=== PATIENT | male | born 1950 ===

== ENCOUNTER → 2017-02-13 | Outpatient (CLI) | payer MEDICARE, OTHER ==
[~2017-02-13] MED LIST: AMLODIPINE BESY10 MG ORAL; ASPIR 8181 MG ORAL; CRESTOR10 M2 ORAL; DIOVAN80 MG ORAL; HYDRALAZINE HCL50 MG ORAL; IBUPROFEN400 MG ORAL; METFORMIN HCL500 M1 ORAL; MIRTAZAPINE15 M3 ORAL; NORCO 5-325 TA1 EACH ORAL
[2017-02-13 15:21] VITALS: BP 128/66
--- NOTE | 2017-02-13 22:09 | Consultation ---
DATE OF CONSULTATION: 02/13/2017 CONSULTING PHYSICIAN: Isidro Scott M.D. CHIEF COMPLAINT: Weight loss. HISTORY OF PRESENT ILLNESS: This is a very pleasant 66-year-old male, who was referred to us for evaluation of rapid weight loss. Apparently, the patient lost 60 pounds in a matter of months. The patient denies any nausea or vomiting. Denies abdominal pain. Denies dysphagia. Denies any odynophagia. No melena. No hematochezia. No recent history of colonoscopy or endoscopy. PAST MEDICAL HISTORY: 1. History of weakness. 2. History of diabetes. 3. Hypertension. 4. Constipation. 5. Brain aneurysm. 6. History of cerebrovascular accident. PAST SURGICAL HISTORY: Two CVS for brain aneurysm. MEDICATIONS: Please see medication reconciliation list. ALLERGIES: No known drug allergies. SOCIAL HISTORY: The patient denies any tobacco, alcohol, or drug abuse. FAMILY HISTORY: No family history of GI malignancies. PHYSICAL EXAMINATION: VITAL SIGNS: Temperature is 98.1 degrees, blood pressure is 122/66, pulse is 90, respirations 20, and weight is 168. Height is 5 feet 5 inches. HEENT: Normocephalic and atraumatic. Sclerae anicteric. NECK: Supple. No evidence of lymphadenopathy. CARDIOVASCULAR: Regular rate and rhythm, plus S1 and S2. LUNGS: Decreased breath sounds bilaterally on supine exam. ABDOMEN: Soft and nontender. No rebound. No guarding. EXTREMITIES: No cyanosis, clubbing, or edema. LABORATORY DATA: Not available. ASSESSMENT: The patient is a 66-year-old male with rapid weight loss without any prior history of endoscopy and colonoscopy. PLAN: We will do endoscopy and colonoscopy next week. The patient was given the instruction in the presence of his son, who speaks fully [place]. He was given the prep instruction and a prescription. Plan is to do endoscopy and colonoscopy next Sunday. If that is completely negative, we will consider doing CT. We are also going to do a laboratory work on the day of procedure including CEA, CA 19-9, and a thyroid panel. I want to thank, Dr. Alejadnro Cooper, for this kind referral. Isidro Raymond Scott DR: EMANUEL JOB#: [id number] CC: Alejandro Cooper M.D.; Fax#: [phone]
== END | disposition home or self-care (01) ==
LOC: PAN 11:05
DX: R63.4 Abnormal weight loss (principal); E11.9 Type 2 diabetes mellitus without complications; I10 Essential (primary) hypertension; Z86.73 Personal history of transient ischemic attack (TIA), and cerebral infarction without residual deficits
CPT/HCPCS: 99201

== ENCOUNTER → 2017-02-23 | Day surgery (SDC) | payer MEDICARE, OTHER ==
[2017-02-23] VITALS (7 sets, daily range): BP systolic 95–137; BP diastolic 52–87
[~2017-02-23] VITALS: Ht 152.4 cm; Wt 68.0 kg
[~2017-02-23] MED LIST changes: +Alfentanil 2ml Inj ONE; +Atropine Inj 1mg/10ml Syr IV PRN; +DiphenhydrAMINE 50mg/ml Inj IVP PRN; +Hydromorphone 0.5mg/0.5ml inj IVP PRN; +Ketorolac 30mg Inj IV PRN; +Ketorolac 60mg Inj IV PRN; +LORazepam Inj 2mg/ml 1ml IV PRN; +LR 1000ml 1,000 ML IVLG SCH; +Labetalol 5mg/ml 20ml vial IV PRN; +Lidocaine 1% MPF 10mg/ml 5ml ONE; +Meperidine 25mg/ml Inj IV PRN; +Metoclopramide 10mg/2ml Inj IVP PRN; +Midazolam 2mg/2ml Inj IVP PRN; +Norco 5mg/325mg tab ORAL PRN; +Norco 7.5mg/325mg tab ORAL PRN; +Oxycodone/Acetaminophen 5-325 ORAL PRN; +Propofol 10mg/ml 20ml IV ONE; +fentaNYL 100 mcg/2 mL IV PRN
--- NOTE | 2017-02-23 10:28 | Anethesia Preoperative Eval ---
Anesthesia Pre-op PMH/ROS General Date of Evaluation: Feb 23, 2017 Time of Evaluation: 10:59 Anesthesiologist: Hali ASA Score: ASA 3 Mallampati Score Class I : Soft palate, uvula, fauces, pillars visible Class II: Soft palate, uvula, fauces visible Class III: Soft palate, base of uvula visible Class IV: Only hard plate visible Mallampati Classification: Class III Surgeon: Tyler Diagnosis: Abd Pain Surgical Procedure: EGD/Colonoscopy Anesthesia History: none Family History: no anesthesia problems Allergies: Coded Allergies: No Known Allergies (Unverified , 09/07/16) Medications: see eMAR Past Medical History Cardiovascular: Reports: HTN Neurologic/Psychiatric: Reports: CVA - Aneurysm Endocrine: Reports: DM PSxH Narrative: Crainiotomy X3 Anesthesia Pre-op Phys. Exam Physician Exam Last Vital Signs Date Time Temp Pulse Resp B/P Pulse Ox O2 Delivery O2 Flow Rate FiO2 02/23/17 09:22 97.8 66 18 137/73 97 Room Air Constitutional: NAD Neurologic: CN 2-12 intact Cardiovascular: RRR Respiratory: CTA Gastrointestinal: S/NT/ND Airway Exam Mallampati Score: Class III MO: limited ROM: limited Teeth: missing, intact Anesthesia Pre-op A/P Risk Assessment & Plan Assessment: ASA 3 Plan: GA Status Change Before Surgery: Jeancarlos Javier MD Feb 23, 2017 10:28
--- NOTE | 2017-02-23 10:29 | Immediate Post-Op Evaluation ---
Immediate Post-Op Evalulation Immediate Post-Op Evalulation Procedure: EGD/Colonscopy Date of Evaluation: Feb 23, 2017 Time of Evaluation: 12:07 IV Fluids: 500 LR Blood Products: 0 Estimated Blood Loss: 1 Urinary Output: 0 Blood Pressure Systolic: 95 Blood Pressure Diastolic: 62 Pulse Rate: 76 Respiratory Rate: 16 O2 Sat by Pulse Oximetry: 100 Temperature (Fahrenheit): 97.2 Pain Score (1-10): 1 Nausea: No Vomiting: No Complications 0 Patient Status: awake, reacts, patent, none Hydration Status: adequate Jeancarlos Lal MD Feb 23, 2017 10:29
--- NOTE | 2017-02-23 10:30 | 48 Hour Post Anesthesia Eval ---
Post Anesthesia Evaluation Procedure: EGD/Colonscopy Date of Evaluation: Feb 23, 2017 Time of Evaluation: 14:11 Blood Pressure Systolic: 142 0: 74 Pulse Rate: 67 Respiratory Rate: 18 Temperature (Fahrenheit): 98.2 O2 Sat by Pulse Oximetry: 97 Airway: patent Nausea: No Vomiting: No Pain Intensity: 1 Hydration Status: adequate Cardiopulmonary Status: Stable Mental Status/LOC: patient returned to baseline Follow-up Care/Observations: 0 Post-Anesthesia Complications: 0 Follow-up care needed: ready to discharge Jeancarlos Lal MD Feb 23, 2017 10:30
--- NOTE | 2017-02-23 10:51 | Pre-Procedure Note/Attestation ---
Pre-Procedure Note/Attestation Complete Prior to Procedure Planned Procedure: not applicable Procedure Narrative: esophagogastroduodenoscopy colon Indications for Procedure Pre-Operative Diagnosis: wt loss Attestation I attest that I discussed the nature of the procedure; its benefits; risks and complications; and alternatives (and the risks and benefits of such alternatives ), prior to the procedure, with the patient (or the patient's legal product support sales representative). I attest that, if there was a reasonable possibility of needing a blood transfusion, the patient (or the patient's legal product support sales representative) was given the [facility] standardized written summary, pursuant to the Omar Dionisio Blood Safety Act ([place] Health and Safety Code # 1645, as amended). I attest that I re-evaluated the patient just prior to the surgery and that there has been no change in the patient's H&P, except as documented below: FRIDA ZAPIEN Feb 23, 2017 10:51
--- NOTE | 2017-02-23 10:52 | Short Stay Surgery H&P ---
History of Present Illness History of Present Illness Chief Complaint see recent consult note HPI Arturo Dorado is a 66 year old male who was admitted on for Constipation, Weight Loss Patient History Allergies: Coded Allergies: No Known Allergies (Unverified , 09/07/16) PAST MEDICAL HISTORY: Past Surgeries: Social History: Medication History Scheduled Amlodipine Besylate* (Amlodipine Besylate*), 10 MG ORAL DAILY, (Reported) Aspirin* (Aspir 81*), 81 MG ORAL EVERY OTHER DAY, (Reported) Hydralazine Hcl* (Hydralazine Hcl*), 100 MG ORAL TID, (Reported) Metformin Hcl* (Metformin Hcl*), 500 MG ORAL TWICE A DAY, (Reported) Mirtazapine* (Mirtazapine*), 30 MG ORAL BEDTIME, (Reported) Rosuvastatin Calcium* (Crestor*), 5 MG ORAL QOD, (Reported) Valsartan (Diovan), 80 MG ORAL DAILY, (Reported) Physical Exam Vital Signs Last Vital Signs Date Time Temp Pulse Resp B/P Pulse Ox O2 Delivery O2 Flow Rate FiO2 02/23/17 09:22 97.8 66 18 137/73 97 Room Air Plan Attestation Are the patient's medical conditions optimized for surgery? FRIDA ZAPIEN Feb 23, 2017 10:52
--- NOTE | 2017-02-23 11:29 | Endoscopy Procedure Note ---
Endoscopy Procedure Note Indication for Procedure: screening colon, WT loss Procedures Performed: EGD, colonoscopy Operative Findings/Diagnosis: gastritis, hemorrhoids Specimen: yes Pt Tolerated Procedure Well: Yes Estimated Blood Loss: none Anesthesiologist: michael Anesthesia: MAC Implant(s) used?: No 50 yrs or older w/o bx or poly: No 10yrs. F/U not recommended: Yes If not recommended, why?: Above average risk 10 yrs. F/U needed: Yes 18 years or older w/prev. colo: No FRIDA ZAPIEN Feb 23, 2017 11:29
--- NOTE | 2017-02-23 11:51 | Endoscopy Procedure Note ---
Endoscopy Procedure Note Indication for Procedure: screening colon, wt loss Procedures Performed: EGD, colonoscopy Operative Findings/Diagnosis: rectal polyp Specimen: yes Pt Tolerated Procedure Well: Yes Estimated Blood Loss: none Anesthesiologist: tayo Anesthesia: MAC Implant(s) used?: No 50 yrs or older w/o bx or poly: No 10yrs. F/U not recommended: Yes If not recommended, why?: Above average risk 10 yrs. F/U needed: Yes 18 years or older w/prev. colo: No FRIDA ZAPIEN Feb 23, 2017 11:51
[2017-02-23 12:39] LABS: BASOPHILS % (AUTO) 1.1 % (0.0-2.0); LYMPHOCYTES % (AUTO) 26.3 % (20.0-45.0); MEAN CORPUSCULAR HEMOGLOBIN 29.1 PG (27.0-31.0); MEAN CORPUSCULAR HGB CONC 32.8 G/DL (32.0-36.0); MEAN CORPUSCULAR VOLUME 89 FL (80-99); MEAN PLATELET VOLUME 6.7 FL (6.5-10.1); MONOCYTES % (AUTO) 8.9 % (1.0-10.0); NEUTROPHILS % (AUTO) 62.6 % (45.0-75.0); PLATELET COUNT 246 K/UL (150-450); RED BLOOD COUNT 4.89 M/UL (4.70-6.10); RED CELL DISTRIBUTION WIDTH 11.7 % (11.6-14.8)
[2017-02-23 13:27] LABS: ALANINE AMINOTRANSFERASE 10 U/L (3-41); ALBUMIN/GLOBULIN RATIO 1.5 (1.0-2.7); ANION GAP 18 (5-15); ASPARTATE AMINO TRANSFERASE 12 U/L (5-40); CALCIUM 8.9 mg/dL (8.6-10.2); CARBON DIOXIDE 25 mEQ/L (20-30); CHLORIDE 97 mEQ/L (98-107); GLOMERULAR FILTRATION RATE > 60 mL/min (>60); HEMOLYSIS 6; POTASSIUM 3.3 mEQ/L (3.4-4.9); SODIUM 140 mEQ/L (135-145); TOTAL PROTEIN 6.8 g/dL (6.6-8.7)
--- NOTE | 2017-02-23 21:17 | Procedure Note ---
DATE OF PROCEDURE: 02/23/2017 SURGEON: Isidro Scott M.D. PROCEDURE: Upper endoscopy with biopsy and colonoscopy with snare polypectomy. ANESTHESIOLOGIST: Jeancarlos Lal M.D. INSTRUMENT: Olympus adult flexible upper endoscope and colonoscope. INDICATION: Screening colonoscopy evaluation, abdominal pain, and weight loss. REASON FOR PROCEDURE: The procedure, risks, benefits, and possible consequences, including hemorrhage, aspiration, perforation and infection, and alternative treatments, were explained to the patient/legal guardian by Dr. Isidro Scott and the patient/legal guardian understood and accepted these risks. DESCRIPTION OF PROCEDURE: After informed consent was obtained and the patient was adequately sedated, Olympus upper endoscope was advanced from the mouth into the second portion of the duodenum and retroflexion was performed in the stomach. The patient has diffuse gastritis. Random biopsy from antrum was obtained to rule out H. pylori infection. The patient also has evidence of small hiatal hernia. At this time, the upper endoscope was retrieved and the patient was turned over for colonoscopy. First, a rectal exam was performed, which shows normal. Then, the scope was advanced from the rectum into the cecum documented by appendiceal orifice, ileocecal valve, and right upper quadrant palpation. Quality of prep was very good. The patient had a 1 cm sessile polyp in the rectum, which was removed with hot snare polypectomy technique. The rest of the exam grossly within normal limits. Retroflexion of rectum showed evidence of small internal hemorrhoids. SUMMARY OF FINDINGS: 1. Gastritis, status post biopsy. 2. Small hiatal hernia. 3. One rectal polyp removed about 1 cm. 4. Internal hemorrhoids. RECOMMENDATIONS: 1. Follow up biopsy results and treat accordingly. 2. Given 1 cm polyp, we are going to repeat colonoscopy in three years. I want to thank, Dr. Alejandro Cooper, for this kind referral. Isidro Scott M.D. DR: KWABENA JOB#: [id number] CC: Alejandro Cooper M.D.
== END | disposition home or self-care (01) ==
LOC: GAS 08:54
DX: Z12.11 Encounter for screening for malignant neoplasm of colon (principal); K62.1 Rectal polyp; K64.8 Other hemorrhoids; R10.9 Unspecified abdominal pain; R63.4 Abnormal weight loss; K29.70 Gastritis, unspecified, without bleeding; K44.9 Diaphragmatic hernia without obstruction or gangrene; I10 Essential (primary) hypertension; E78.5 Hyperlipidemia, unspecified; E11.9 Type 2 diabetes mellitus without complications; E66.9 Obesity, unspecified; Z68.30 Body mass index [BMI] 30.0-30.9, adult; Z86.73 Personal history of transient ischemic attack (TIA), and cerebral infarction without residual deficits; Z79.84 Long term (current) use of oral hypoglycemic drugs; Z79.82 Long term (current) use of aspirin
CPT/HCPCS: 36415; 43239; 45385; 80053; 82378; 82962; 84439; 84443; 85025; J2704; J3490; 94003; 94150

== ENCOUNTER → 2017-03-14 | Outpatient (CLI) | payer MEDICARE, OTHER ==
[~2017-03-14] MED LIST changes: -Alfentanil 2ml Inj ONE; -Atropine Inj 1mg/10ml Syr IV PRN; -DiphenhydrAMINE 50mg/ml Inj IVP PRN; -Hydromorphone 0.5mg/0.5ml inj IVP PRN; -Ketorolac 30mg Inj IV PRN; -Ketorolac 60mg Inj IV PRN; -LORazepam Inj 2mg/ml 1ml IV PRN; -LR 1000ml 1,000 ML IVLG SCH; -Labetalol 5mg/ml 20ml vial IV PRN; -Lidocaine 1% MPF 10mg/ml 5ml ONE; -Meperidine 25mg/ml Inj IV PRN; -Metoclopramide 10mg/2ml Inj IVP PRN; -Midazolam 2mg/2ml Inj IVP PRN; -Norco 5mg/325mg tab ORAL PRN; -Norco 7.5mg/325mg tab ORAL PRN; -Oxycodone/Acetaminophen 5-325 ORAL PRN; -Propofol 10mg/ml 20ml IV ONE; -fentaNYL 100 mcg/2 mL IV PRN
--- NOTE | 2017-03-14 15:02 | GI Progress Note ---
Assessment/Plan Problems: (1) Weight loss ICD Codes: R63.4 - Abnormal weight loss SNOMED: 64216730, 625451700 (2) Malnutrition ICD Codes: E46 - Unspecified protein-calorie malnutrition SNOMED: 5070799 (3) Rectal polyp ICD Codes: K62.1 - Rectal polyp SNOMED: 26893866 Status: unchanged Status Narrative Seen with Dr. Scott. Assessment/Plan colonoscopy reviewed with patient >> rectal polyp observe for addition weight loss, will consider CT if patient continues to lose weight push PO RTC x 3 months repeat colon x 5 years Subjective Subjective decreased appetite graduate weight loss over course of year Objective T 97.7 BP 134/68 P 82 96 RA Weight (Pounds): 148 General Appearance: alert Cardiovascular: normal rate Respiratory/Chest: normal breath sounds, no respiratory distress Abdominal Exam: normal bowel sounds, non tender, soft Extremities: normal range of motion Objective Endoscopy Procedure Note Indication for Procedure: screening colon, wt loss Procedures Performed: EGD, colonoscopy Operative Findings/Diagnosis: rectal polyp FRIDA SCOTT - Feb 23, 2017 11:51 Alisa Cope N.P. Mar 14, 2017 15:02
== END | disposition home or self-care (01) ==
LOC: PAN 14:05
DX: R63.4 Abnormal weight loss (principal); E46 Unspecified protein-calorie malnutrition; K62.1 Rectal polyp
CPT/HCPCS: 99211